=== PATIENT | female | born 1980 | race Caucasian/White ===

== ENCOUNTER → 2016-10-13 | Outpatient (CLI) | payer MEDICAID | END | disposition disaster alternative care site (69) | LOC: EDBD 09:56 → GKIC 09:56 | DX: M53.82 Other specified dorsopathies, cervical region (principal); M50.223 Other cervical disc displacement at C6-C7 level; M48.02 Spinal stenosis, cervical region ==

== ENCOUNTER → 2016-10-17 | Outpatient (CLI) | payer MEDICAID | END | disposition disaster alternative care site (69) | LOC: GKIC 11:33 | DX: M54.9 Dorsalgia, unspecified (principal); M51.27 Other intervertebral disc displacement, lumbosacral region; G96.19 Other disorders of meninges, not elsewhere classified ==